=== PATIENT | female | born 1995 | race African-American/Black ===

== ENCOUNTER 2018-06-25 11:29 | Inpatient (IN) ==
[2018-06-25] MEDS ORDERED: BUTORPHANOL 1 MG/ML VIAL IV PRN (12:11)
[2018-06-25] MEDS ORDERED: ONDANSETRON 4 MG/2 ML VIAL IV PRN (12:11)
[2018-06-25] MEDS ORDERED: AMPICILLIN INJ 2,000 MG in SODIUM CHLORIDE 0.9% 100 ML IV ONE (12:18)
[2018-06-25] MEDS ORDERED: OXYTOCIN/LR 20 UNIT/1,000 ML BAG IV SCH (12:30)
[2018-06-25] MEDS ORDERED: LACTATED RINGERS 1,000 ML IV SCH (12:30)
[2018-06-25 12:37] LABS: Basophils % 0.6 % (0.0-0.8); Eosinophils # 0.3 10*3/uL (0.0-0.87); Eosinophils % 4.7 % (0.00-10.9); Hematocrit 43.8 VOL% (35.7-47.0); Immature Granulocytes % 0.6 %; Immature Granulocytes Absolute 0.04 #; Lymphocytes # 1.7 10*3/uL (1.4-4.0); Mean Corpuscular Volume 97.1 FL (87-102); Mean Platelet Volume 11.6 FL (9.6-12.0); Neutrophils % 59.1 % (38.7-73.9); Platelet Count 179 T/CUMM (130-400); Red Blood Count 4.51 MC/CUMM (3.8-5.5); Red Cell Distribution Width 12.5 % (9.3-17.3); White Blood Count 7.1 T/CUMM (4-12)
[2018-06-25 12:55] LABS: Bilirubin,Total 0.6 MG/DL (0.2-1.0); Calcium 9.3 MG/DL (8.5-10.1); Total Protein 7.8 G/DL (6.4-8.3)
[2018-06-25] MEDS: LACTATED RINGERS 1,000 ML IV PRN (12:55)
[2018-06-25] MEDS ORDERED: hydrOXYzine HCL 25 MG/1 ML VIAL IM PRN (13:11)
[2018-06-25] MEDS ORDERED: FAMOTIDINE 20 MG/2 ML VIAL IV ONE (13:11)
[2018-06-25] MEDS ORDERED: PROMETHAZINE 25 MG/1 ML VIAL IM ONE (13:11)
[2018-06-25] MEDS ORDERED: CITRIC ACID/SODIUM CITRATE 30 ML UDCUP PO ONE (13:11)
[2018-06-25] MEDS ORDERED: diphenhydrAMINE 50 MG/1 ML VIAL IV PRN ×2 (13:11)
[2018-06-25] MEDS ORDERED: NALOXONE 0.4 MG/ML VIAL IV PRN (13:11)
[2018-06-25] MEDS ORDERED: ONDANSETRON 4 MG/2 ML VIAL IV ONE (13:11)
[2018-06-25] MEDS: fentaNYL 2 MCG/ROPIV 0.2% EPID 100 ML EPIDURAL SCH ×2 (13:24→21:36)
[2018-06-25] MEDS: ePHEDrine 50 MG/ML AMP IV PRN (14:34)
[2018-06-25 15:06] LABS: Apearance,Urine CLEAR (Clear); Bacteria,Urine Occasional /HPF (Few); Bilirubin,Urine Negative (Negative); Blood, Urine Negative (Negative); Glucose,Urine (UA) Negative (Negative); Ketones,Urine 5 mg/dL (Negative); Mucus,Urine Occasional /LPF (Occasional); Nitrite,Urine Negative (Negative); Protein,Urine Negative; RBC,Urine <1 /HPF (0-4); Squamous Epithelial Cell,Urine Occasional /HPF (0-10); Urine Color Yellow (Yellow); Urine Specific Gravity 1.016 (1.001-1.035); Urine Urobilinogen < 2.0 EU/DL (0.2-1.0); WBC,Urine 1 /HPF (0-6)
[2018-06-25] MEDS: AMPICILLIN INJ 1,000 MG in SODIUM CHLORIDE 0.9% 100 ML IV SCH ×2 (16:49→21:35)
[2018-06-26] MEDS: AMPICILLIN INJ 1,000 MG in SODIUM CHLORIDE 0.9% 100 ML IV SCH ×2 (01:24→04:52)
[2018-06-26] MEDS ORDERED: fentaNYL 100 MCG/2 ML VIAL ONE (02:36)
[2018-06-26] MEDS ORDERED: LIDOCAINE MPF 2% /EPI 20 ML VIAL ONE (02:37)
[2018-06-26] MEDS: LACTATED RINGERS 1,000 ML IV PRN (06:00)
[2018-06-26] MEDS ORDERED: miSOPROStol 200 MCG TABLET ONE (07:37)
[2018-06-26] MEDS ORDERED: ACETAMINOPHEN 325 MG TABLET PO ONE (09:57)
[2018-06-26] MEDS ORDERED: oxyCODONE/ACETAMINOPHEN 5-325 MG TABLET PO PRN ×2 (13:17)
[2018-06-26] MEDS ORDERED: HYDROCORTISONE 2.5% RECTAL CREAM 30 GM TUBE TOP PRN (13:17)
[2018-06-26] MEDS ORDERED: RHO(D) IMMUNE GLOBULIN 300 MCG SYRINGE IM ONE (13:17)
[2018-06-26] MEDS ORDERED: BENZOCAINE 20%/MENTHOL 0.5% SPRAY 56 GM CAN TOP PRN (13:17)
[2018-06-26] MEDS ORDERED: MEASLES/MUMPS/RUBELLA VACCINE 0.5 ML VIAL SUBCUT ONE (13:17)
[2018-06-26] MEDS ORDERED: WITCH HAZEL PADS 100/JAR TOP PRN (13:17)
[2018-06-26] MEDS ORDERED: ACETAMINOPHEN 325 MG TABLET PO PRN (13:17)
[2018-06-26] MEDS ORDERED: BISACODYL 10 MG SUPP RECTAL PRN (13:17)
[2018-06-26] MEDS ORDERED: LANOLIN 50% CREAM 0.3 OZ TUBE TOP PRN (13:17)
[2018-06-26] MEDS ORDERED: DIPH/TET/ACEL PERT BOOSTER VACCINE 0.5 ML VIAL IM ONE (13:17)
[2018-06-26] MEDS ORDERED: ACETAMINOPHEN/CODEINE 300-30 MG TABLET PO PRN (13:17)
[2018-06-26] MEDS ORDERED: OXYTOCIN/LR 20 UNIT/1,000 ML BAG IV ONE (13:32)
[2018-06-26] MEDS: IBUPROFEN 800 MG TABLET PO PRN (14:32)
[2018-06-26] MEDS: DOCUSATE SODIUM 100 MG CAPSULE PO SCH (21:24)
[2018-06-27 02:12] LABS: Basophils # 0.1 10*3/uL (0.0-0.2); Basophils % 0.3 % (0.0-0.8); Eosinophils # 0.2 10*3/uL (0.0-0.87); Hemoglobin 10.5 GM/DL (12.0-16.0); Immature Granulocytes % 0.6 %; Immature Granulocytes Absolute 0.12 #; Lymphocytes # 2.1 10*3/uL (1.4-4.0); Lymphocytes % 10.9 % (21.3-54.2); Mean Corpuscular HGB Conc 32.8 GM/DL (32-36); Mean Corpuscular Volume 95.5 FL (87-102); Mean Platelet Volume 10.6 FL (9.6-12.0); Monocytes % 8.6 % (1.7-12.7); Neutrophils % 78.6 % (38.7-73.9); Platelet Count 149 T/CUMM (130-400); Red Blood Count 3.35 MC/CUMM (3.8-5.5); Red Cell Distribution Width 12.7 % (9.3-17.3)
[2018-06-27] MEDS: IBUPROFEN 800 MG TABLET PO PRN (03:21)
[2018-06-27] MEDS: DOCUSATE SODIUM 100 MG CAPSULE PO SCH ×2 (10:04→20:16)
[2018-06-28] MEDS: DOCUSATE SODIUM 100 MG CAPSULE PO SCH (09:00)
[2018-06-28 12:43] VITALS: BP 114/74
== END 2018-06-28 13:20 | disposition home or self-care (01) | DRG 807 ==
LOC: N.LDOUT 11:29 → N.LD 11:30 → N.OB 06-26 12:55
PROVIDERS: ADMIT Obstetrics & Gynecology; ATTEND Obstetrics & Gynecology